=== PATIENT | female | born 1965 | race Caucasian/White ===

== ENCOUNTER → 2016-10-22 | Outpatient (CLI) | payer MEDICAID ==
[~2016-10-22] MED LIST: DEXA4TAB PO; GADOBUTROL 7.5 MMOL/7.5 ML VIAL ONE; METH750T2 PO; OXYC5TAB3 PO; PREG25CA PO
== END | disposition home or self-care (01) ==
LOC: CFH 12:34
PROVIDERS: ATTEND Specialist
DX: C50.911 Malignant neoplasm of unspecified site of right female breast (principal); M70.62 Trochanteric bursitis, left hip
CPT/HCPCS: 73720; 73723; A9585

== ENCOUNTER → 2016-12-05 | Outpatient (CLI) | payer MEDICAID ==
[~2016-12-05] MED LIST changes: +ANAS1TAB PO; -GADOBUTROL 7.5 MMOL/7.5 ML VIAL ONE; +TEMA30CA PO
== END | disposition home or self-care (01) ==
LOC: PETCFH 10:07
PROVIDERS: ATTEND Specialist
DX: C79.51 Secondary malignant neoplasm of bone (principal); C50.911 Malignant neoplasm of unspecified site of right female breast; Z90.11 Acquired absence of right breast and nipple
CPT/HCPCS: 78815; A9552

== ENCOUNTER → 2017-02-12 | Outpatient (CLI) | payer MEDICAID ==
[~2017-02-12] MED LIST changes: +OMNIPAQUE 350 MG/ML, 100ML BOTTLE ONE
== END | disposition home or self-care (01) ==
LOC: CFH 11:24
PROVIDERS: ATTEND Nurse Practitioner Family
DX: N63 Unspecified lump in breast (principal); N64.4 Mastodynia; C79.51 Secondary malignant neoplasm of bone; Z85.3 Personal history of malignant neoplasm of breast; Z90.11 Acquired absence of right breast and nipple
CPT/HCPCS: 74177; 76641; G0204; Q9967

== ENCOUNTER → 2017-03-18 | Outpatient (CLI) | payer OTHER ==
[~2017-03-18] MED LIST changes: +LIDOCAINE 1%, 20ML ONE; -OMNIPAQUE 350 MG/ML, 100ML BOTTLE ONE
== END | disposition home or self-care (01) ==
LOC: RAD 06:15 → EDSTATUS 09:00
PROVIDERS: ATTEND Specialist
DX: C50.919 Malignant neoplasm of unspecified site of unspecified female breast (principal); C79.51 Secondary malignant neoplasm of bone; R22.1 Localized swelling, mass and lump, neck
CPT/HCPCS: 20206; 73000; 76942; 88305; J3490